=== PATIENT | female | born 2000 | race Caucasian/White ===

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

== ENCOUNTER 2020-05-02 11:35 | Emergency (ER) | payer BC ==
--- OUTSIDE RECORDS SUMMARY | 2020-05-02 11:38 | XMS REPORT | Continuity of Care Document ---
:2000 Author Organization [facility] t Address [address] [place] [address] Care Team Providers Name Role Phone Jesus Falcon MD Attending Clinician Radiology Attending Clinician Unavailable Pob, Lab Main Attending Clinician Unavailable Problems This patient has no known problems. Allergies, Adverse Reactions, Alerts This patient has no known allergies or adverse reactions. Medications This patient has no known medications. Procedures This patient has no known procedures. Encounters Start End Encounter Admission Attending Care Care Encounter Source Date/Time Date/Time Type Type Clinicians Facility Department ID 2020-03-22 2020-03-22 Telephone Stefano, [facility] [id number] 00:00:00 00:00:00 Sheeba Hughes [id number] [place] [id number] [facility] [id number] nal [address] Building 2019-08-28 2019-08-28 [facility] [id number] 16:28:00 23:59:00 Encounter [place] [id number] [place] [id number] [place] [id number] 2019-08-28 2019-08-28 Strip Tank Tender Galilea Tse [facility] [id number] 16:36:34 17:15:45 Visit Lab Main [place] [id number] [place] [id number] [facility] [id number] [address] Results This patient has no known results.
--- OUTSIDE RECORDS SUMMARY | 2020-05-02 11:38 | XMS REPORT | Summary of Care ---
:2000 Author Organization [facility] Address [address] [place] [id number] Care Team Providers Name Role Phone Melvina Silvio Primary Care Provider Reason for Visit Reason Comments Rx Concern/Question Encounter Details Date Type Department Care Team Description 03/22/[address] [facility] Women's AdumSheeba MD Rx Concern/Question Healthcare- [address] [facility] [address], [address] [place] [phone] Allergies Active Allergy Reactions Severity Noted Date Comments Ketamine Unknown - See comments 10/16/2016 documented as of this encounter (statuses as of 03/23/2020) Medications No known medicationsdocumented as of this encounter (statuses as of 03/23/2020) Active Problems Not on filedocumented as of this encounter (statuses as of 03/23/2020) Social History Tobacco Use Types Packs/Day Years Used Date Never Assessed Sex Assigned at Date Recorded Not on file documented as of this encounter Last Filed Vital Signs Not on filedocumented in this encounter Miscellaneous Notes Telephone Encounter - Fiona Ji RN - 03/23/2020 8:58 AM CDTName and verified. Patient requesting HSV vaccine at office visit tomorrow. RN advised patient that there is not currently an FDA approved vaccine for treatment or prevention of HSV. Patient verbalized understanding and agrees to plan of care. 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 documented in this encounter Plan of Treatment Date Type Specialty Care Team Description 03/24/2020 Office Visit Obstetrics & Gynecology Lisandra Falcon MD [address] [place] [address] Dr. Garcia [place], [place] [phone] Health Maintenance Due Date Last Done Comments VARICELLA VACCINES (1 of 2 - 2-dose 2001 childhood series) MENINGOCOCCAL B VACCINES (1 of 2 - 2010 Risk Bexsero 2-dose series) HPV VACCINES (1 - 2-dose series) 2011 Depression Screening 2012 WELL CARE VISIT: 12-21 YEARS 2012 (yearly) CHLAMYDIA SCREENING 2016 DTaP,Tdap,and Td Vaccines (1 - 2019 Tdap) INFLUENZA VACCINE (#1) 2020 MENINGOCOCCAL VACCINE Aged Out No longer eligible based on patient's age to complete this topic PNEUMOCOCCAL 0-64 YEARS COMBINED Aged Out No longer eligible based on SERIES patient's age to complete this topic documented as of this encounter Results Not on filedocumented in this encounter Insurance Payer Benefit Plan Subscriber ID Effective Dates Phone Address Type / Group [id number]-Rayna [phone] [address] PPO/POS [place] - OUT OF t [id number] [place] [address] documented as of this encounter
[2020-05-02 12:09] LABS: Absolute Lymphocytes (CBC) 2.2 K/uL (0.7-4.9); Basophils % 0.6 % (0-1.3); Hematocrit 41.2 % (36.0-45.0); Lymphocytes % 23.6 % (15.3-44.8); MPV 8.4 fL (7.6-11.3)
[2020-05-02 12:23] LABS: BUN Blood Urea Nitrogen 12 mg/dL (7-18); Bicarbonate 29 mmol/L (21-32); Glucose Level 76 mg/dL (74-106); Potassium 4.1 mmol/L (3.5-5.1); Sodium Level 140 mmol/L (136-145)
[2020-05-02 12:52] LABS: Urine Blood NEGATIVE (NEG); Urine Glucose NEGATIVE (NEG); Urine Protein NEGATIVE (NEG); Urine pH 6.5 (5.0-7.0)
[2020-05-02 12:59] LABS: Urine Bacteria >50 /HPF (<20); Urine Culture Reflex Order REFLEXED; Urine RBC <5 /HPF (NONE SEEN)
--- NOTE | 2020-05-02 13:17 | RAD REPORT ---
EXAM DESCRIPTION: CT - Abdomen Pelvis W Contrast - 05/02/2020 12:58 pm CLINICAL HISTORY: ABD PAIN, suprapubic pain COMPARISON: No comparisons TECHNIQUE: Biphasic, helical CT imaging of the abdomen and pelvis was performed following 100 ml non -ionic IV contrast. No oral contrast. All CT scans are performed using dose optimization technique as appropriate and may include automated exposure control or mA/KV adjustment according to patient size. FINDINGS: No suspicious findings in the lung bases. The liver, spleen, and pancreas show no suspicious findings. Gallbladder and biliary tree are also wi thout suspicious finding. Symmetric renal function is seen with no hydronephrosis or suspicious renal mass. No pyelonephritis o r acute parenchymal process. Michaels of the urinary bladder are mildly prominent but not definitive for cystitis. Correlation can be made with UA findings. No adrenal abnormalities. Left deviation of a normal size uterus seen with no acute uterine finding. An acute or primary left o varian process is not suspected. A 4 x 2 centimeter partially collapsed right adnexal cystic mass is present. Free fluid is present in the cul de sac and bilateral at adnexa. No dilated bowel loops or bowel wall thickening. Normal size air-filled appendix identified. No free air or pneumatosis. No hernia, mass or bulky lymphadenopathy. No suspicious bony findings. IMPRESSION: A 4 x 2 centimeter partially collapsed cystic mass in the right adnexae is present belie aidan to be ovarian in origin. Collapsed or hemorrhagic ovarian cyst would be most likely. There is some suggestion of dilated fallo pian tube. Correlation is needed with any history or exam findings that may suggest PID. No appendicitis or acute bowel finding.
[2020-05-02] MEDS ORDERED: KETOROLAC 30 MG/ML INJ ONE (14:24)
--- NOTE | 2020-05-02 14:24 | RAD REPORT ---
EXAM DESCRIPTION: US - Pelvis Complete - 05/02/2020 1:58 pm CLINICAL HISTORY: ABD PAIN COMPARISON: Abdomen Pelvis W Contrast dated 05/02/2020 TECHNIQUE: Transabdominal pelvic sonography was performed. FINDINGS: Uterus is normal size with no endometrial or myometrial mass. Left ovary and left adnexa s how no suspicious findings. Normal blood flow seen in the left ovary. A 3.5 centimeter oval hypoechoic mass is present in the right adnexa. This is the correlate to the CT finding. Scattered low-level internal echogenicity is present within this structure. Again, hemorrhagic or involuting right ovarian cyst is most likely. There is blood flow in tissue adj acent to the cystic mass which is probably ovarian stroma. There is suggestion but no definitive proo f of a dilated fallopian tube. Pyosalpinx is possible but needs clinical correlation with exam findin gs and history. IMPRESSION: Approximately 3.5 centimeter oval hypoechoic mass in the right adnexa. Uterus and left o vary are unremarkable. As detailed above and on the CT study, hemorrhagic or involuting right ovarian cyst is favored. There are less definitive findings that could indicate pyosalpinx. This needs correlation with clinical ex am findings and history.
--- NOTE | 2020-05-02 14:41 | ER ---
Nurse's Notes [facility] Name: Jessica Sams Age: 19 yrs Sex: Female : 2000 Arrival Date: 05/02/2020 Time: 11:39 Bed 8 Private MD: Diagnosis: Unspecified ovarian cysts Presentation: 05/02 11:48 Chief complaint: Patient states: suprapubic pain that started last night. Denies n/v/d. sv Coronavirus screen: Client denies travel out of the [place] in the last 14 days. At this time, the client does not indicate any symptoms associated with coronavirus-19. Ebola Screen: No symptoms or risks identified at this time. Initial Sepsis Screen: Does the patient meet any 2 criteria? No. Patient's initial sepsis screen is negative. Does the patient have a suspected source of infection? No. Patient's initial sepsis screen is negative. Risk Assessment: Do you want to hurt yourself or someone else? Patient reports no desire to harm self or others. Onset of symptoms was May 01, 2020. 11:48 Method Of Arrival: Ambulatory sv 11:48 Acuity: MICHELE 3 sv Triage Assessment: 11:50 General: Appears in no apparent distress. uncomfortable, slender, well developed, sv Behavior is calm, cooperative, appropriate for age. Pain: Complains of pain in suprapubic area. Neuro: Level of Consciousness is awake, alert, obeys commands, Oriented to person, place, time, situation, Moves all extremities. Full function Gait is steady. Respiratory: Respiratory effort is even, unlabored, Respiratory pattern is regular, symmetrical. GI: Reports lower abdominal pain, Patient currently denies diarrhea, nausea, vomiting. Derm: Skin is intact, Skin is pink, warm \T\ dry. Musculoskeletal: Range of motion: intact in all extremities. 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 - Social history:: Smoking status: Reported history of juuling and/or vaping. - Family history:: not pertinent. - Hospitalizations: : No recent hospitalization is reported. Screenin:51 Abuse screen: Denies threats or abuse. Denies injuries from another. Nutritional sv screening: No deficits noted. Tuberculosis screening: No symptoms or risk factors identified. Fall Risk None identified. Assessment: 12:05 Reassessment: Pt unable to give a urine sample. Ok by Dr Calero to give water to obtain sv urine sample. 14:14 Reassessment: Patient appears in no apparent distress at this time. No changes from sv previously documented assessment. Patient and/or family updated on plan of care and expected duration. Pain level reassessed. Patient is alert, oriented x 3, equal unlabored respirations, skin warm/dry/pink. 14:57 Reassessment: Pt up for discharge, pt waiting for IM shot time before being discharged. sv Vital Signs: 11:48 BP 121 / 73; Pulse 71; Resp 16; Temp 98.1; Pulse Ox 99% ; Weight 63.5 kg; Height 5 ft. sv 1 in. (154.94 cm); 13:25 BP 96 / 66; Pulse 66; Resp 16; Pulse Ox 100% on R/A; sv 13:58 BP 103 / 69; Pulse 78; Resp 16; Pulse Ox 100% ; sv 14:45 BP 106 / 71; Pulse 63; Resp 16; Pulse Ox 100% ; sv 11:48 Body Mass Index 26.45 (63.50 kg, 154.94 cm) sv ED Course: 11:39 Patient arrived in ED. mr 11:42 Izabella Armas, RN is Primary Nurse. sv 11:44 Hunter Calero MD is Attending Physician. rn 11:49 Triage completed. sv 11:50 ED physician to see patient. sv 11:50 Arm band placed on. sv 11:51 Patient has correct armband on for positive identification. Bed in low position. Call sv light in reach. Pulse ox on. NIBP on. Door closed. Head of bed elevated. 11:55 Inserted saline lock: 20 gauge in left antecubital area, using aseptic technique. Blood sv collected. Flushed left antecubital with 5 ml normal saline. 12:05 Awaiting lab results. sv 12:46 Urine collected: clean catch specimen, clear. dh3 12:58 CT Abd/Pelvis - IV Contrast Only In Process Unspecified. EDMS 13:19 Urine Culture Sent. sv 13:59 US Pelvis Complete In Process Unspecified. EDMS 13:59 Ultrasound completed. Patient tolerated well. Notified ED Physician derrick. sg3 14:20 Awaiting radiology results. sv 15:03 No provider procedures requiring assistance completed. IV discontinued, intact, sv bleeding controlled, No redness/swelling at site. Pressure dressing applied. Administered Medications: 14:14 Drug: TORadol - Ketorolac 15 mg Route: IVP; Site: left antecubital; sv 15:02 Follow up: Response: No adverse reaction sv 14:57 Drug: Rocephin (cefTRIAXone) 250 mg Route: IM; Site: right gluteus; sv 15:35 Follow up: Response: No adverse reaction sv 14:57 Drug: Doxycycline 100 mg Route: PO; sv 15:35 Follow up: Response: No adverse reaction sv Outcome: 14:40 Discharge ordered by MD. rn 15:03 Discharged to home ambulatory, with family. sv 15:03 Condition: stable 15:03 Discharge instructions given to patient, Instructed on discharge instructions, follow up and referral plans. no driving heavy equipment, medication usage, safe sex practices, Demonstrated understanding of instructions, follow-up care, medications, Prescriptions given X 2. 15:35 Patient left the ED. sv Addendum: 05/05/2020 09:44 Addendum: Culture Results: Positive urine culture. Bacteria is resistant to, has s s intermediate sensitivity, or is not tested against prescribed antibiotics. Report given to RAJIV for further evaluation and then to animal services officer for follow up with patient. 15:34 Addendum: Culture Results: Phone call Attempt #1 called patient who states that the s s followed up with supervisor extruding department already who put her on additional medications for UTI. Pt verbalizes understanding that urine culture has been resulted. Pt states that her symptoms have improved. Signatures: Dispatcher [employer] Izabella Sal RN RN sv Rivera, Mary mr Nieto, Roman, MD MD rn Smirch, Shelby, RN RN ss Herrera, [facility] Felicitas Espinoza 3
--- NOTE | 2020-05-02 14:41 | EDPHYS ---
Physician Documentation [facility] Name: Jessica Sams Age: 19 yrs Sex: Female : 2000 Arrival Date: 05/02/2020 Time: 11:39 Bed 8 Private MD: ED Physician Hunter Calero HPI: 05/02 12:10 This 19 yrs old Female presents to ER via Ambulatory with complaints of rn Abdominal Pain. 12:10 The patient presents with abdominal pain in the lower abdomen. Onset: The rn symptoms/episode began/occurred last night. The symptoms do not radiate. Associated signs and symptoms: Pertinent negatives: nausea and vomiting, blood in stools, chest pain, constipation, diarrhea, dysuria, fever, hematuria, vaginal discharge, vomiting. Modifying factors: The symptoms are alleviated by nothing, the symptoms are aggravated by touching the area. Severity of pain: At its worst the pain was moderate in the emergency department the pain has improved. The patient has not experienced similar symptoms in the past. The patient has not recently seen a physician. 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 - Social history:: Smoking status: Reported history of juuling and/or vaping. - Family history:: not pertinent. - Hospitalizations: : No recent hospitalization is reported. ROS: 12:10 Constitutional: Negative for fever, chills, and weight loss, Eyes: Negative for injury, rn pain, redness, and discharge, Cardiovascular: Negative for chest pain, palpitations, and edema, Respiratory: Negative for shortness of breath, cough, wheezing, and pleuritic chest pain, Abdomen/GI: Negative for nausea, vomiting, diarrhea, and constipation, Back: Negative for injury and pain, : Negative for injury, bleeding, discharge, and swelling, MS/Extremity: Negative for injury and deformity, Skin: Negative for injury, rash, and discoloration, Neuro: Negative for headache, weakness, numbness, tingling, and seizure. Exam: 12:10 Constitutional: This is a well developed, well nourished patient who is awake, alert, rn and in no acute distress. Ambulatory to room without distress or assistance ENT: MMM Cardiovascular: Regular rate and rhythm. No pulse deficits. Respiratory: No increased work of breathing, no retractions or nasal flaring. Abdomen/GI: soft, + suprapubic tenderness, no rebound, no peritoneal signs Skin: Warm, dry MS/ Extremity: Pulses equal, no cyanosis. Neuro: Awake and alert, GCS 15 Vital Signs: 11:48 BP 121 / 73; Pulse 71; Resp 16; Temp 98.1; Pulse Ox 99% ; Weight 63.5 kg; Height 5 ft. sv 1 in. (154.94 cm); 13:25 BP 96 / 66; Pulse 66; Resp 16; Pulse Ox 100% on R/A; sv 13:58 BP 103 / 69; Pulse 78; Resp 16; Pulse Ox 100% ; sv 14:45 BP 106 / 71; Pulse 63; Resp 16; Pulse Ox 100% ; sv 11:48 Body Mass Index 26.45 (63.50 kg, 154.94 cm) sv MDM: 11:44 Patient medically screened. rn 14:38 Differential diagnosis: non-specific abd pain, Ovarian Torsion, Pelvic Inflammatory rn Disease, Tubal Ovarian Abcess, Ureterolithiasis, urinary tract infection, ovarian cyst. Data reviewed: vital signs, nurses notes, lab test result(s), radiologic studies, CT scan, ultrasound, and as a result, I will discharge patient. Counseling: I had a detailed discussion with the patient and/or guardian regarding: the historical points, exam findings, and any diagnostic results supporting the discharge/admit diagnosis, lab results, radiology results, the need for outpatient follow up, to return to the emergency department if symptoms worsen or persist or if there are any questions or concerns that arise at home. Response to treatment: the patient's symptoms have mildly improved after treatment, and as a result, I will discharge patient. Special discussion: Based on the patient's Hx, exam, and Dx evaluation, there is no indication for emergent surgery or inpatient Tx. It is understood by the patient/guardian that if the Sx's persist or worsen they need to return immediately for re-evaluation. I discussed with the patient/guardian in detail that at this point there is no indication for admission to the hospital. It is understood, however, that if the symptoms persist or worsen the patient needs to return immediately for re-evaluation. ED course: No symptoms reported to suggest PID, but young and possible fallopian tube involvement, most likely ovarian cyst, so will dc home with abx to be safe, and recommend PARKING METER ATTENDANT f/u. . 05/02 11:54 Order name: Urine Microscopic Only; Complete Time: 13:19 rn 05/02 11:54 Order name: CBC with Diff; Complete Time: 12:26 rn 05/02 11:54 Order name: Basic Metabolic Panel; Complete Time: 12:26 rn 05/02 12:48 Order name: Urine Dipstick--Ancillary (enter results); Complete Time: 13:19 eb 05/02 12:48 Order name: Urine --Ancillary (enter results); Complete Time: 13:19 eb 05/02 13:01 Order name: Urine Culture EDAZ 05/02 11:54 Order name: Urine Test (obtain specimen); Complete Time: 12:46 rn 05/02 11:54 Order name: Urine Dipstick-Ancillary (obtain specimen); Complete Time: 12:46 rn 05/02 11:54 Order name: IV Start; Complete Time: 12:06 rn 05/02 12:26 Order name: CT Abd/Pelvis - IV Contrast Only; Complete Time: 13:19 rn 05/02 13:20 Order name: US Pelvis Complete; Complete Time: 14:31 rn Administered Medications: 14:14 Drug: TORadol - Ketorolac 15 mg Route: IVP; Site: left antecubital; sv 15:02 Follow up: Response: No adverse reaction sv 14:57 Drug: Rocephin (cefTRIAXone) 250 mg Route: IM; Site: right gluteus; sv 15:35 Follow up: Response: No adverse reaction sv 14:57 Drug: Doxycycline 100 mg Route: PO; sv 15:35 Follow up: Response: No adverse reaction sv Disposition: 05/02/20 14:40 Discharged to Home. Impression: Unspecified ovarian cysts. - Condition is Stable. - Discharge Instructions: Ovarian Cyst. - Prescriptions for Tylenol- Codeine #3 300-30 mg Oral Tablet - take 1 tablet by ORAL route every 6 hours As needed; 15 tablet. Doxycycline Hyclate 100 mg Oral Tablet - take 1 tablet by ORAL route every 12 hours; 20 tablet. - Medication Reconciliation Form, Thank You Letter, Antibiotic Education, Prescription Opioid Use form. - Follow up: Private Physician; When: As needed; Reason: Recheck today's complaints, Re-evaluation by your physician. - Problem is new. - Symptoms have improved. Signatures: Dispatcher [employer] Izabella Sal RN RN Hunter Licona MD MD recruitment internship: (The following items were deleted from the chart) 15:35 14:40 05/02/2020 14:40 Discharged to Home. Impression: Unspecified ovarian cysts. sv Condition is Stable. Discharge Instructions: Ovarian Cyst. Prescriptions for Tylenol-Codeine #3 300-30 mg Oral Tablet - take 1 tablet by ORAL route every 6 hours As needed; 15 tablet. and Forms are Medication Reconciliation Form, Thank You Letter, Antibiotic Education, Prescription Opioid Use. Follow up: Private Physician; When: As needed; Reason: Recheck today's complaints, Re-evaluation by your physician. Problem is new. Symptoms have improved. rn
[2020-05-02] MEDS ORDERED: LIDOCAINE 1% MPF 2 ML AMPULE ONE (15:06)
[2020-05-02] MEDS ORDERED: CEFTRIAXONE 250 MG/VIAL ONE (15:06)
[2020-05-02] MEDS ORDERED: DOXYCYCLINE 100 MG CAP PO ONE (15:06)
[2020-05-02 15:53] VITALS: TEMP 98.1
[2020-05-02 15:55] VITALS: O2SAT 100
[2020-05-02 15:59] VITALS: BP 106/71
== END 2020-05-02 15:35 | disposition home or self-care (01) ==
LOC: ER 11:35
DX: N83.209 Unspecified ovarian cyst, unspecified side (principal); Z87.891 Personal history of nicotine dependence; Z88.8 Allergy status to other drugs, medicaments and biological substances
CPT/HCPCS: 87088; 85025; 87086; 80048; 36415; 81025; 87077; 87186; 74177; 76856; 96372; 96374; 99284; Q9967; J2001; J0696; 81003; 81015